=== PATIENT | male | born 1995 | race Caucasian/White ===

== ENCOUNTER 2021-03-04 20:31 | Emergency (ER) | payer SELFPAY ==
[~2021-03-04] VITALS: Ht 185.4 cm; Wt 74.2 kg
[~2021-03-04 20:31] MED LIST: Hydrocodone Bit/Acetaminophen PO; SULF-23 PO
[2021-03-04 20:33] VITALS: BP 111/86
--- NOTE | 2021-03-04 23:21 | NUR ---
called 3 times in the lobby, no answer.
== END 2021-03-04 23:23 | disposition left against medical advice (07) ==
LOC: ED 23:17
DX: R22.42 Localized swelling, mass and lump, left lower limb (principal); Z53.21 Procedure and treatment not carried out due to patient leaving prior to being seen by health care provider

== ENCOUNTER 2021-03-05 19:16 | Emergency (ER) | payer SELFPAY ==
[~2021-03-05] VITALS: Ht 185.4 cm; Wt 74.4 kg
--- NOTE | 2021-03-05 22:10 | NUR ---
pt came into ed this evening due to left lower leg swelling and scab, pain and swelling have increased and pt was concerned. pt has a bandaid over scabbed area, and ankle appears swollen and red. monitoring in place. Patient is resting comfortably in bed. Bed in lowest, rails engaged, call light on lap. Vital Signs within normal limits. WCTM.
[2021-03-05] MEDS ORDERED: SULFAMETH./TRIMETHOPRIM DS 800MG/160MG TABLET PO ONE (22:30)
[2021-03-05] MEDS ORDERED: ACETAMINOPHEN 500 MG TABLET PO ONE (22:30)
[2021-03-05] MEDS ORDERED: IBUPROFEN 600 MG TABLET PO ONE (22:30)
[2021-03-05] MEDS ORDERED: DIPH,PERTUSS(ACELL),TET VAC/PF 0.5 ML IM-VACC ONE ×2 (22:30→22:43)
[2021-03-05 22:41] LABS: BASOPHILS % (AUTO) 1 % (0-1); EOSINOPHILS % (AUTO) 2 % (1-7); LYMPHOCYTES % (AUTO) 30 % (22-44); MEAN CORPUSCULAR HEMOGLOBIN 28.3 pg (27.5-34.5); MEAN CORPUSCULAR HGB CONC 33.8 g/dL (33.2-36.2); MEAN PLATELET VOLUME 6.9 fL (7.4-10.4); MONOCYTES % (AUTO) 13 % (2-9); NEUTROPHILS % (AUTO) 54 % (42-75); PLATELET COUNT 294 x10^3/uL (130-400); RED BLOOD COUNT 4.32 x10^6/uL (4.38-5.82); RED CELL DISTRIBUTION WIDTH 15.4 % (9.4-14.8)
[2021-03-05] MEDS ORDERED: IBUPROFEN 600 MG TABLET ONE (22:42)
[2021-03-05] MEDS ORDERED: SULFAMETH./TRIMETHOPRIM DS 800MG/160MG TABLET ONE (22:42)
[2021-03-05] MEDS ORDERED: ACETAMINOPHEN 500 MG TABLET ONE (22:42)
--- NOTE | 2021-03-05 22:47 | NUR ---
medicated per oct, nad, Patient is resting comfortably in bed. Bed in lowest, rails engaged, call light on lap. WCTM.
[2021-03-05 23:19] LABS: ALBUMIN 3.1 g/dL (3.4-5.0); CALCIUM 8.8 mg/dL (8.5-10.1); CREATININE 1.09 mg/dL (0.7-1.3)
[2021-03-05 23:28] LABS: ALANINE AMINOTRANSFERASE 43 U/L (12-78); ALKALINE PHOSPHATASE 85 U/L (45-117); ANION GAP 4 mmol/L (5-15); BILIRUBIN,TOTAL 0.3 mg/dL (0.2-1.0); CHLORIDE 104 mmol/L (98-107); TOTAL PROTEIN 7.3 g/dL (6.4-8.2)
[2021-03-05 23:43] VITALS: BP 95/62
--- NOTE | 2021-03-05 23:43 | NUR ---
Patient given discharge instructions and they have confirmed that they understand the instructions. Patient ambulatory with steady gait. NAD, all questions answered appropriately, denies additional needs at this time. No personal belongings left in room after discharge.
== END 2021-03-06 00:12 | disposition home or self-care (01) ==
LOC: ED 22:00
DX: L03.116 Cellulitis of left lower limb (principal); F17.210 Nicotine dependence, cigarettes, uncomplicated
CPT/HCPCS: 36415; 80053; 85025; 90471; 90715; 99284; 99406